=== PATIENT | female | born 1990 | race Hispanic/Latino ===

== ENCOUNTER 2018-11-25 20:46 | Emergency (ER) | payer SELFPAY ==
[~2018-11-25] VITALS: Ht 162.6 cm; Wt 68.0 kg
--- NOTE | 2018-11-25 22:36 | Diagnostic Imaging Report ---
EXAMINATION: CHEST 2 VIEWS INDICATION: Shortness of breath, left side chest pain ^ORDER PLACED BY ^[id number] ^[id number] ^Y COMPARISON: None FINDINGS: PA and lateral views TUBES and LINES: None. LUNGS: Lungs are well inflated. There is no evidence of pneumonia or pulmonary edema. PLEURA: No pleural effusion or pneumothorax. HEART AND MEDIASTINUM: The cardiomediastinal silhouette is unremarkable.. BONES AND SOFT TISSUES: No focal osseous lesions. Soft tissues are unremarkable. UPPER ABDOMEN: No free air under the diaphragm. IMPRESSION: No acute thoracic abnormality. Signed by: Dr. Efrain Mullins MD on 11/25/2018 10:32 PM
[2018-11-25 23:38] VITALS: BP 106/80
== END 2018-11-25 23:40 | disposition home or self-care (01) ==
LOC: ER 20:46
DX: R06.09 Other forms of dyspnea (principal); R07.89 Other chest pain
CPT/HCPCS: 71046; 93005; 99283